=== PATIENT | male | born 1950 | race Caucasian/White ===

== ENCOUNTER 2021-12-16 17:13 | Emergency (ER) | payer OTHER ==
--- OUTSIDE RECORDS SUMMARY | 2021-12-16 17:56 | XMS REPORT | Continuity of Care Document ---
:1950 Author Organization [facility] Address [address] [place] [address] [address]. [address] [place] [address] Care Team Providers Name Role Phone Ren Oliva Attending Clinician Unavailable Freddy_Bret Attending Clinician Unavailable Jada Hayes Attending Clinician [phone] Linda Admitting Clinician Unavailable Payers Payer Name Policy Type Policy Number Effective Date Expiration Date Vitor BOWENS (MEDICARE [id number] 2021 REPLACEMENT PPO) 00:00:00 Problems Condition Condition Condition Status Onset Resolution Last Treating Co mments Source Name Details Category Date Date Treatment Clinician Date Primary Primary Diagnosis Active Commo n osteoarthr osteoarthr Sp jonnathan [facility] Primary Primary Diagnosis Active Commo n osteoarthr osteoarthr Sp jonnathan [facility] of [facility] left knee left knee [facility] Pain in Pain in Diagnosis Active Commo n joint of joint of [facility] right [facility] right knee - [facility] Pain in Pain in Diagnosis Active Commo n joint of joint of [facility] left knee left knee - I [facility] Allergies, Adverse Reactions, Alerts This patient has no known allergies or adverse reactions. Medications Ordered Filled Start Stop Current Ordering Indication Dosage Frequency Signature Comments Components Source Medication Medication Date Date Medication? Clinician (SIG) Name Name Simvastatin Simvastatin Yes Fabien not Common Siddiqiu defined [facility] Tamsulosin Tamsulosin Yes Fabien not Common HCl HCl Siddiqui defined [facility] Aspirin Aspirin Yes Fabien not Common Siddiqui defined [facility] Brilinta Brilinta Yes Fabien not Comm on Siddiqui defined [facility] Metoprolol Metoprolol Yes Fabien not Common Succinate Succinate Siddiqui defined Sp jonnathan [facility] Finasteride Finasteride Yes Fabien not Common Siddiqui defined [facility] Procedures This patient has no known procedures. Encounters Start End Encounter Admission Attending Care Care Encounter Source Date/Time Date/Time Type Type Clinicians Facility Department ID 2021-07-16 Outpatient JOSE J Oliva STBRICE [id number] Common 11:06:46 Bert [id number] [facility] 2021-12-15 2021-12-15 Outpatient Hoang_A [facility]U [id number] 12:31:00 12:31:00 [facility] 2021-08-16 2021-08-16 Outpatient Hoang_A [facility]U [id number] 03:09:00 03:09:00 [facility] 2021-08-04 2021-08-04 Outpatient Hoang_A [facility] [id number] 10:44:00 10:44:00 [facility] 2021-08-01 2021-08-01 Outpatient Hoang_A [facility]U [id number] 01:32:00 01:32:00 [facility] 2021-08-01 2021-08-01 Outpatient Hayes, An HMU HMU [id number] 00:00:00 00:00:00 Jada [id number] 2021-07-09 2021-07-09 Outpatient Hoang_A [facility]U HMU [id number] 11:52:00 11:52:00 [facility] 2021-01-23 2021-01-23 Outpatient Hoang_A [facility]U HMU [id number] 11:50:00 11:50:00 [facility] 2021-01-22 2021-01-22 Outpatient Hoang_A [facility]U HMU [id number] 12:15:00 12:15:00 [facility] 2021-01-22 2021-01-22 Outpatient Hayes, An [facility]U HMU [id number] 00:00:00 00:00:00 Jada [id number] 2021-01-17 2021-01-17 Outpatient Hoang_A [facility]U HMU [id number] 03:32:00 03:32:00 [id number] [facility] 2021-01-17 2021-01-17 Outpatient Linda MIRZA [id number] 03:31:00 03:31:00 [id number] [facility] 2019-07-27 2019-07-27 Outpatient Jannet Haddad [id number] Common 10:00:00 10:00:00 [facility] Results Test Description Test Time Test Comments Results Result [facility] e Comments MRI PELVIS W/WO 2021-02-12 (PROSTATE) 12:27:23 [facility] : 1950 Sex: M CL INICAL INDICATION: R97.2 elevated prostate specific antigen PSA. Negative biopsy 3 years ago. PSA 10.37.MODALITY: Siemens Skyra 3.0 Usha MRITECHNIQUE: Multiplanar, multiparametric MRI of the prostate is performed with T1, T2 and diffusion weighted imaging. Quantitative analysis is performed with DynaCAD. IV contrast is administered, 18 ml Dotarem. Dynamic post-contrast imaging with DynaCAD quantitative analysis are accomplished.[id number] MR DynaCADIMPRESSION:No lesions targeted. No evidence of aggressive or extra prostatic malignancy. BPH.PI-RADS 1: Most probably benign.FINDINGS:MP RISON: None.Normal regional marrow signal is observed. No suspicious osseous metastatic lesions.No suspicious common iliac, internal iliac, external iliac, inguinal or eloy-prostatic lymph nodes.Regional bowel is unremarkable. No mural or intraluminal bladder mass. Anterior abdominal wall and pelvic floor are unremarkable. No evidence of ascites.Estimated prostate volume is 116.41 ml. No suspicious T2 hypointense lesions, areas of restricted diffusion or abnormal enhancement. The transitional zone is hypertrophic, heterogeneous and nodular, consistent with BPH.Seminal vesicles exhibit normal signal intensity. Neurovascular bundles are symmetric in appearance without definite tumor involvement. The prostate capsule is smooth in contour.
[2021-12-16 18:09] LABS: Absolute Lymphocytes (CBC) 1.5 K/uL (0.7-4.9); Hematocrit 38.8 % (39.6-49.0); Lymphocytes % 27.5 % (15.3-44.8); MPV 9.7 fL (7.6-11.3); RBC Red Blood Cell Count 4.32 M/uL (4.33-5.43)
[2021-12-16] MEDS ORDERED: TETANUS & DIPHTHERIA TOX,ADULT 0.5 ML VIAL ONE (18:13)
[2021-12-16 18:17] LABS: Protime INR 1.11
[2021-12-16 18:26] LABS: Potassium 4.3 mmol/L (3.5-5.1); Troponin High Sensitivity 8.5 pg/mL (<58.9)
--- NOTE | 2021-12-16 18:51 | RAD REPORT ---
EXAM DESCRIPTION: US - CP - 12/16/2021 6:27 pm CLINICAL HISTORY: chest pain, neck pain Neck pain COMPARISON: <Comparisons> TECHNIQUE: Real-time sonographic evaluation of both carotid systems was performed. Doppler interroga tion was performed with waveform tracing bilaterally. FINDINGS: Normal high resistance waveforms are noted in both external carotid arteries. The common c arotid arteries and internal carotid arteries show normal low resistance waveforms. Moderate hard/mixed plaque is seen involving the right carotid bulb. 50-70% stenosis is suspected bas ed on NASCET criteria. Soft plaque is present left carotid bulb with estimated stenosis 70-80% based on NASCET criteria. Antegrade flow seen in both vertebral arteries. IMPRESSION: Moderate narrowing of both carotid bulbs is present as detailed, slightly greater on the left. No significant velocity elevations.
--- NOTE | 2021-12-16 19:04 | RAD REPORT ---
EXAM DESCRIPTION: CT - Angio Aorta For Dissection - 12/16/2021 6:58 pm CLINICAL HISTORY: Chest pain radiating to the back. chest pain, neck pain COMPARISON: CT HEAD CSPINE MPR WO CONTRAST dated 06/18/2013No comparisons TECHNIQUE: CT angiography of the aorta was performed with MIPs. All CT scans are performed using dose optimization technique as appropriate and may include automated exposure control or mA/KV adjustment according to patient size. FINDINGS: A left aortic arch is present with normal branching pattern of the great vessels.No acute aortic finding is seen such as aneurysm, penetrating ulcer or dissection. The celiac axis, SMA, ERIKA and renal arteries are patent. No evidence of pulmonary embolism. The lungs are clear. The liver demonstrates no focal mass or biliary dilatation.The spleen, pancreas, adrenal glands and k idneys are within normal limits for arterial phase imaging. No bowel obstruction, free fluid or abscess.No pathologic enlarged lymphadenopathy identified. No fracture or worrisome bone lesion seen. Significant enlargement of prostate gland projecting into the bladder base noted. IMPRESSION: No acute aortic finding is demonstrated. Enlarged prostate projecting into the bladder base noted.
--- NOTE | 2021-12-16 19:20 | RAD REPORT ---
EXAM DESCRIPTION: RAD - Chest Single View - 12/16/2021 7:06 pm CLINICAL HISTORY: CHEST PAIN Chest pain. COMPARISON: Chest Pa And Lat (2 Views) dated 11/01/2017; CHEST PA AND LAT 2 VIEW dated 11/25/2010 FINDINGS: Portable technique limits examination quality. The lungs are grossly clear. The heart is normal in size. No displaced fractures. IMPRESSION: No acute intrathoracic process suspected.
--- NOTE | 2021-12-16 19:21 | RAD REPORT ---
EXAM DESCRIPTION: RAD - C Spine Ap/Lat - 12/16/2021 7:10 pm CLINICAL HISTORY: PAIN COMPARISON: No comparisons FINDINGS: Cervical bodies are normal in height and alignment.No fracture or acute bony process seen. Moderate spondylosis is present with disc thinning and posterior osteophyte formation at C5-6 and C6- 7.Mild spondylosis is present at C3-4. No prevertebral soft tissue thickening or other suspicious soft tissue finding. Mild carotid bulb calcification on the right. IMPRESSION: Mild to moderate cervical degenerative spondylosis.
--- NOTE | 2021-12-16 20:36 | ER ---
Nurse's Notes [facility] Name: Rock Carrizales Age: 71 yrs Sex: Male : 1950 Arrival Date: 12/16/2021 Time: 17:15 Bed 3 Private MD: Bret Oliva C Diagnosis: Chest pain, unspecified Presentation: 12/16 17:26 Chief complaint: Patient states: chest tightness that began 3-4 days ago and sharp ss pains with ROM of neck to neck/ occipital area. Coronavirus screen: Client denies travel out of the [place] in the last 14 days. Ebola Screen: Patient denies exposure to infectious person. Patient denies travel to an Ebola-affected area in the 21 days before illness onset. Initial Sepsis Screen: Does the patient meet any 2 criteria? No. Patient's initial sepsis screen is negative. Does the patient have a suspected source of infection? No. Patient's initial sepsis screen is negative. Risk Assessment: Do you want to hurt yourself or someone else? Patient reports no desire to harm self or others. Onset of symptoms was December 12, 2021. 17:26 Method Of Arrival: Ambulatory ss 17:26 Acuity: JONEL 3 ss Triage Assessment: 17:30 General: Appears in no apparent distress. comfortable, Behavior is calm, cooperative, bp appropriate for age. Pain: Complains of pain in chest. EENT: No deficits noted. Neuro: No deficits noted. Cardiovascular: Rhythm is sinus bradycardia. Respiratory: No deficits noted. GI: No signs and/or symptoms were reported involving the gastrointestinal system. : No signs and/or symptoms were reported regarding the genitourinary system. Derm: No deficits noted. Musculoskeletal: No deficits noted. Historical: - Allergies: 17:29 No Known Allergies; ss - PSHx: 17:29 cardiac stents; ss - Immunization history:: Client reports receiving the 2nd dose of the Covid vaccine. - Social history:: Smoking status: Patient denies any tobacco usage or history of. - Family history:: not pertinent. - Hospitalizations: : No recent hospitalization is reported. Screenin:30 Abuse screen: Denies threats or abuse. Denies injuries from another. Nutritional bp screening: No deficits noted. Tuberculosis screening: No symptoms or risk factors identified. Fall Risk None identified. Assessment: 17:30 General: SEE TRIAGE NOTE. bp 18:23 Reassessment: Patient appears in no apparent distress at this time. No changes from bp previously documented assessment. Patient and/or family updated on plan of care and expected duration. Pain level reassessed. US COMPLETE. 19:35 Pain: Denies pain. Neuro: No deficits noted. Cardiovascular: No deficits noted. jb4 Respiratory: No deficits noted. GI: No signs and/or symptoms were reported involving the gastrointestinal system. : No signs and/or symptoms were reported regarding the genitourinary system. EENT: No deficits noted. Derm: No deficits noted. Musculoskeletal: No deficits noted. 20:05 Reassessment: Patient appears in no apparent distress at this time. Patient is alert, as6 oriented x 3, equal unlabored respirations, skin warm/dry/pink. Vital Signs: 17:26 BP 163 / 88; Pulse 59; Resp 16; Pulse Ox 100% on R/A; ss 18:23 BP 137 / 75; Pulse 54; Resp 19; Pulse Ox 98% ; bp 19:35 BP 133 / 87; Pulse 45; Resp 16; Pulse Ox 99% on R/A; Pain 0/10; jb4 20:05 BP 133 / 87; Pulse 59; Resp 19 S; Pulse Ox 99% on R/A; as6 Vitals: 19:35 Cardiac Rhythm Assessment Regular Sinus aida. jb4 ED Course: 17:15 Patient arrived in ED. as 17:15 Bret Oliva MD is Private Physician. as 17:19 Alfa Briceño MD is Attending Physician. rn 17:29 Triage completed. ss 17:30 Javier Solares, RN is Primary Nurse. bp 17:30 Patient has correct armband on for positive identification. Bed in low position. Call bp light in reach. Side rails up X2. Client placed on continuous cardiac and pulse oximetry monitoring. NIBP monitoring applied. 17:32 Arm band placed on right wrist. ss 18:00 Inserted saline lock: 20 gauge in right antecubital area, using aseptic technique. bp Blood collected. Patient maintains SpO2 saturation greater than 95% on room air. 18:29 Carotid Artery Bilateral US In Process Unspecified. EDMS 19:00 CT Aorta for Dissection In Process Unspecified. EDMS 19:04 XRAY C Spine Ap/lat In Process Unspecified. EDMS 19:08 XRAY Chest (1 view) In Process Unspecified. EDMS 19:10 Attending Physician role handed off by Alfa Briceño MD kdr 19:10 Kunal Bell MD is Attending Physician. kdr 19:36 No apparent distress. Resting quietly. Awaiting radiology results. jb4 20:35 Bret Oilva MD is Referral Physician. kdr 20:49 No provider procedures requiring assistance completed. IV discontinued, intact, as6 bleeding controlled, No redness/swelling at site. Pressure dressing applied. 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 Exp: 09/13/2023. Lot bp #: [id number]. } Route: IM; Site: right deltoid; 19:13 Follow up: Response: No adverse reaction bp 20:49 Drug: Motrin (ibuprofen) 600 mg Route: PO; as6 20:50 Follow up: Response: No adverse reaction as6 Medication: 17:30 VIS not applicable for this client. bp Outcome: 20:35 Discharge ordered by . kdr 20:50 Discharged to home ambulatory, with significant other. as6 20:50 Condition: stable 20:50 Discharge instructions given to patient, family, Instructed on discharge instructions, follow up and referral plans. Demonstrated understanding of instructions, follow-up care. 20:50 Patient left the ED. as6 Signatures: Dispatcher [employer] [facility] Kunal Bell MD MD kdr Pat Lara as Alfa Briceño MD MD rn Latoya Villagran RN RN ss Gaurang Malone RN RN jb4 Javier Solares RN RN bp Slawson, Ashby, RN RN as6
--- NOTE | 2021-12-16 20:36 | EDPHYS ---
Physician Documentation [facility] Name: Rock Carrizales Age: 71 yrs Sex: Male : 1950 Arrival Date: 12/16/2021 Time: 17:15 Bed 3 Private MD: Bret Oliva C ED Physician Kunal Bell HPI: 12/16 17:46 This 71 yrs old Male presents to ER via Ambulatory with complaints of Chest Pain. rn 17:46 The patient or guardian reports chest pain that is located primarily in the substernal rn area. 17:48 Onset:. rn 17:48 Onset: 3 day(s) ago. The pain radiates to Associated signs and symptoms: Pertinent rn positives: nausea, shortness of breath, Pertinent negatives: abdominal pain, cough, lower extremity swelling, near syncope, syncope, vomiting. The chest pain is described as a heaviness, a pressure, "dumbbell on chest". Duration: The patient or guardian reports multiple episodes, that are intermittent. Modifying factors: The symptoms are alleviated by nothing. the symptoms are aggravated by nothing. Severity of pain: At its worst the pain was moderate in the emergency department the pain has improved. The patient has not experienced similar symptoms in the past. The patient has not recently seen a physician. Historical: - Allergies: 17:29 No Known Allergies; ss - PSHx: 17:29 cardiac stents; ss - Immunization history:: Client reports receiving the 2nd dose of the Covid vaccine. - Social history:: Smoking status: Patient denies any tobacco usage or history of. - Family history:: not pertinent. - Hospitalizations: : No recent hospitalization is reported. ROS: 17:48 Constitutional: Negative for fever, chills, and weight loss, Eyes: Negative for injury, rn pain, redness, and discharge, Neck: + neck pain Cardiovascular: Negative for palpitations, and edema, Respiratory: Negative for cough, wheezing, and pleuritic chest pain, Abdomen/GI: Negative for abdominal pain, nausea, vomiting, diarrhea, and constipation, Back: Negative for injury and pain, MS/Extremity: Negative for injury and deformity, Skin: Negative for injury, rash, and discoloration, Neuro: Negative for headache, weakness, numbness, tingling, and seizure. Exam: 17:48 Constitutional: This is a well developed, well nourished patient who is awake, alert, rn and in no acute distress. Head/Face: Normocephalic, atraumatic. Eyes: Periorbital areas with no swelling, redness, or edema. Neck: No neck swelling, no pulsatile mass, no crepitus, trachea midline. Cardiovascular: Regular rate and rhythm. No pulse deficits. Respiratory: Lungs have equal breath sounds bilaterally, clear to auscultation and percussion. No rales, rhonchi or wheezes noted. No increased work of breathing, no retractions or nasal flaring. Abdomen/GI: Soft, non-tender, with normal bowel sounds. No distension or tympany. No guarding or rebound. No evidence of tenderness throughout. Skin: Warm, dry MS/ Extremity: Pulses equal, no cyanosis. Neuro: Awake and alert, GCS 15 Vital Signs: 17:26 BP 163 / 88; Pulse 59; Resp 16; Pulse Ox 100% on R/A; ss 18:23 BP 137 / 75; Pulse 54; Resp 19; Pulse Ox 98% ; bp 19:35 BP 133 / 87; Pulse 45; Resp 16; Pulse Ox 99% on R/A; Pain 0/10; jb4 20:05 BP 133 / 87; Pulse 59; Resp 19 S; Pulse Ox 99% on R/A; as6 MDM: 17:19 Patient medically screened. rn 18:41 ED course: Consulted with Dr. Oliva, states if troponin neg and imaging without acute rn findings, can be discharged home with cardiology f/u given patient with 3 days chest pain. . 20:45 ED course: Discussed with the patient all of the lab findings. Responded to questions. kdr I also discussed and relayed the findings to Dr. Oliva. He recommended NSAIDs for pain and cardiology follow-up. I relayed that information as well to the patient.. ED course: Patient was discharged in good condition and was happy with the care provided and the plan for discharge and follow-up. 12/17 03:03 Data reviewed: vital signs, nurses notes, lab test result(s), radiologic studies. kdr 12/16 17:41 Order name: Basic Metabolic Panel; Complete Time: 18:28 rn 12/16 17:41 Order name: CBC with Diff; Complete Time: 18:17 rn 12/16 17:41 Order name: NT PRO-BNP; Complete Time: 18:28 rn 12/16 17:41 Order name: Troponin HS; Complete Time: 18:28 rn 12/16 17:57 Order name: Protime (+inr); Complete Time: 18:17 bp 12/16 17:57 Order name: Ptt, Activated; Complete Time: 18:17 bp 12/16 17:41 Order name: XRAY Chest (1 view); Complete Time: 20:30 rn 12/16 17:41 Order name: EKG; Complete Time: 17:41 rn 12/16 17:41 Order name: Cardiac monitoring; Complete Time: 17:57 rn 12/16 17:41 Order name: Carotid Artery Bilateral US; Complete Time: 20:30 rn 12/16 17:41 Order name: CT Aorta for Dissection; Complete Time: 20:30 rn 12/16 18:38 Order name: XRAY C Spine Ap/lat; Complete Time: 20:30 rn 12/16 17:41 Order name: EKG - Nurse/Tech; Complete Time: 17:57 rn 12/16 17:41 Order name: IV Saline Lock; Complete Time: 17:56 rn 12/16 17:41 Order name: Labs collected and sent; Complete Time: 17:56 rn 12/16 17:41 Order name: O2 Per Protocol; Complete Time: 17:42 rn 12/16 17:41 Order name: O2 Sat Monitoring; Complete Time: 17:42 rn Administered Medications: 12/16 18:11 Drug: Tetanus Toxoid,Adsorbed 0.5 ml {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 Exp: 09/13/2023. Lot bp #: [id number]. } Route: IM; Site: right deltoid; 19:13 Follow up: Response: No adverse reaction bp 20:49 Drug: Motrin (ibuprofen) 600 mg Route: PO; as6 20:50 Follow up: Response: No adverse reaction as6 Disposition Summary: 12/16/21 20:35 Discharge Ordered Location: Home kdr Problem: new kdr Symptoms: have improved kdr Condition: Stable kdr Diagnosis - Chest pain, unspecified kdr Followup: kdr - With: Bret Oliva MD - When: 48 Hours - Reason: If symptoms return, Further diagnostic work-up, Recheck today's complaints, Continuance of care, Re-evaluation by your physician Discharge Instructions: - Discharge Summary Sheet kdr - Nonspecific Chest Pain, Adult kdr Forms: - Medication Reconciliation Form kdr - Thank You Letter kdr Signatures: Dispatcher [employer] Kunal Garza MD MD kdr Nieto, Roman, MD MD rn Smirch, Shelby, RN RN ss Peltier, Brian, RN RN Clemente Obrien RN RN as6
[2021-12-16] MEDS ORDERED: IBUPROFEN 200 MG TAB PO ONE (20:54)
[2021-12-16] MEDS ORDERED: IBUPROFEN 400 MG TAB ONE (20:55)
[2021-12-16 21:43] VITALS: BP 133/87; O2SAT 99
--- NOTE | 2021-12-17 12:54 | EKG ---
Test Date: 2021-12-16 Test Time: 17:47:27 Business Operations Consultant: BP MEASUREMENT RESULTS: Intervals: Rate: 49 CT: 164 QRSD: 84 QT: 456 QTc: 411 [place]: P: 45 CT: 164 QRS: 54 T: 56 INTERPRETIVE STATEMENTS: Sinus bradycardia Otherwise normal ECG Compared to ECG 11/23/2016 08:30:41 No significant changes Electronically Signed On 12-17-21 12:53:10 CDT by Drake Angel
== END 2021-12-16 20:50 | disposition home or self-care (01) ==
LOC: ER 17:13
DX: R07.89 Other chest pain (principal); Z23 Encounter for immunization; Z95.818 Presence of other cardiac implants and grafts
CPT/HCPCS: 85025; 80048; 36415; 85610; 85730; 84484; 83880; 71275; 74175; 71045; 72040; 93880; 90714; Q9967; 93005